=== PATIENT | male | born 1965 | race African-American/Black ===

== ENCOUNTER 2023-04-17 18:24 | Inpatient (IN) | payer BC, OTHER ==
[2023-04-17 18:52] VITALS: BMI 29.1
[2023-04-17 20:11] LABS: EOS % 0.2 % (0-4.5); HEMATOCRIT 37.6 % (35.4-49); HEMOGLOBIN 12.4 GM/dL (11.7-16.9); LYMPH % 21.4 % (8-40); MCHC 33.1 g/dl (32.0-35.9); MEAN CELL VOLUME 87.7 fl (80-96); MEAN PLT VOLUME 7.4 fl (7.5-11.1); MONO % 7.1 % (3.8-10.2); NEUT % 70.3 % (42.8-82.8); PLATELET COUNT 247 10^3/uL (134-434); RBC 4.28 M/mm3 (4.00-5.60); RDW 13.9 % (11.9-15.9); WHITE BLOOD COUNT 5.3 K/mm3 (4.0-10.0)
[2023-04-17] MEDS ORDERED: ACETAMINOPHEN 500 MG TABLET (FP) PO ONE (21:21)
[2023-04-17] MEDS ORDERED: ACETAMINOPHEN 500 MG TABLET (FP) ONE (21:36)
[2023-04-17] MEDS ORDERED: ACETAMINOPHEN 1000 MG/100 ML BAG IVPB ONE (21:39)
[2023-04-17] MEDS ORDERED: ACETAMINOPHEN INJECTION 100 ML IVPB ONE (21:41)
[2023-04-17 21:43] LABS: PH,URINE 8.5 (5.0-8.0); URINE APPEARANCE CLOUDY; URINE BILIRUBIN NEGATIVE (NEGATIVE); URINE COLOR YELLOW; URINE GLUCOSE (UA) NEGATIVE (NEGATIVE); URINE KETONE 1+ (NEGATIVE); URINE LEUK ESTERASE NEGATIVE (NEGATIVE); URINE NITRITE NEGATIVE (NEGATIVE); URINE PROTEIN NEGATIVE (NEGATIVE)
[2023-04-17 21:50] LABS: COCAINE, UR NEGATIVE (NEGATIVE); OPIATES, URI NEGATIVE (NEGATIVE); URINE BARBITURATES NEGATIVE (NEGATIVE)
[2023-04-17 21:52] LABS: METHADONE, UR NEGATIVE (NEGATIVE); URINE AMPHETAMINES NEGATIVE (NEGATIVE); URINE BENZODIAZEPINES NEGATIVE (NEGATIVE)
[2023-04-17 22:01] LABS: CHLORIDE 111 mmol/L (98-107); POTASSIUM 3.9 mmol/L (3.5-5.1); SODIUM 142 mmol/L (136-145)
[2023-04-17 22:02] LABS: ALBUMIN 3.4 g/dl (3.4-5.0); ANION GAP 7 mmol/L (4-13); BLOOD UREA NITROGEN 13.8 mg/dL (7-18); CALCIUM 8.9 mg/dL (8.5-10.1); CO2 25 mmol/L (21-32); GLUCOSE,RANDOM 91 mg/dL (74-106)
[2023-04-17 22:03] LABS: PHENCYCLIDINE,URINE POSITIVE (NEGATIVE)
[2023-04-17 22:05] LABS: SGPT/ALT 32 U/L (13-61)
[2023-04-17 22:07] LABS: BILIRUBIN,TOTAL 0.5 mg/dL (0.2-1); CREATININE 0.9 mg/dL (0.55-1.3); SGOT/AST 23 U/L (15-37); TOT PROT 7.1 g/dl (6.4-8.2)
[2023-04-17 22:09] LABS: ALK PHOS 64 U/L (45-117)
[2023-04-17] MEDS ORDERED: SODIUM CHLORIDE 0.9% 500 ML INFUS.BAG IV ONE (22:09)
[2023-04-17 22:10] LABS: N-TERMINAL BNP 172.8 pg/ml (5-125)
[2023-04-18] MEDS ORDERED: cloNIDine HCL 0.1 MG TABLET PO PRN (04:07)
[2023-04-18] MEDS ORDERED: methaDONE HCL 10 MG TABLET PO ONE (04:07)
[2023-04-18 04:09] LABS: COCAINE, UR NEGATIVE (NEGATIVE); METHADONE, UR NEGATIVE (NEGATIVE); OPIATES, URI NEGATIVE (NEGATIVE)
[2023-04-18 04:10] LABS: URINE AMPHETAMINES NEGATIVE (NEGATIVE)
[2023-04-18 04:15] LABS: PHENCYCLIDINE,URINE POSITIVE (NEGATIVE); URINE BARBITURATES NEGATIVE (NEGATIVE); URINE BENZODIAZEPINES NEGATIVE (NEGATIVE)
[2023-04-18] MEDS ORDERED: methaDONE HCL 10 MG TABLET ONE (04:19)
[2023-04-18 07:44] LABS: BASO % 0.8 % (0-2.0); EOS % 0.8 % (0-4.5); HEMATOCRIT 36.4 % (35.4-49); HEMOGLOBIN 12.1 GM/dL (11.7-16.9); LYMPH % 24.2 % (8-40); MCH 29.8 pg (25.7-33.7); MCHC 33.2 g/dl (32.0-35.9); MEAN CELL VOLUME 89.7 fl (80-96); MEAN PLT VOLUME 7.9 fl (7.5-11.1); MONO % 9.6 % (3.8-10.2); NEUT % 64.6 % (42.8-82.8); PLATELET COUNT 251 10^3/uL (134-434); RBC 4.05 M/mm3 (4.00-5.60); RDW 13.6 % (11.9-15.9); WHITE BLOOD COUNT 6.3 K/mm3 (4.0-10.0)
[2023-04-18] MEDS ORDERED: MAG HYDROX/AL HYDROX/SIMETH 30 ML UNIT-DOSE CUP ONE (07:44)
[2023-04-18 08:07] LABS: POTASSIUM 3.8 mmol/L (3.5-5.1)
[2023-04-18 08:08] LABS: ALBUMIN 3.1 g/dl (3.4-5.0); CALCIUM 8.4 mg/dL (8.5-10.1)
[2023-04-18 08:09] LABS: BLOOD UREA NITROGEN 11.6 mg/dL (7-18)
[2023-04-18 08:12] LABS: PHOSPHOROUS 2.4 mg/dL (2.5-4.9)
[2023-04-18 08:13] LABS: CREATININE 0.8 mg/dL (0.55-1.3)
[2023-04-18 08:14] LABS: BILIRUBIN,TOTAL 0.6 mg/dL (0.2-1); TOT PROT 6.8 g/dl (6.4-8.2)
[2023-04-18] MEDS: MAG HYDROX/AL HYDROX/SIMETH 30 ML UNIT-DOSE CUP PO SCH ×3 (08:20→23:17)
[2023-04-18] MEDS ORDERED: ENOXAPARIN NA (PORCINE) 80 MG/0.8 ML DISP.SYRIN SQ ONE (09:09)
[2023-04-18] MEDS: ENOXAPARIN NA (PORCINE) 80 MG/0.8 ML DISP.SYRIN SQ SCH ×2 (09:16→23:17)
[2023-04-18] MEDS ORDERED: ENOXAPARIN NA (PORCINE) 40 MG/0.4 ML DISP.SYRIN SQ SCH (10:00)
[2023-04-18] MEDS ORDERED: SODIUM CHLORIDE 0.9% 500 ML INFUS.BAG IV ONE (14:20)
[2023-04-18 14:30] LABS: HIV INTERPRETATION NEGATIVE (NEGATIVE)
[2023-04-18 14:37] LABS: SYPHILIS W/ RPR CONF NON-REACTIVE (NONREACTIVE)
[2023-04-18] MEDS ORDERED: cloNIDine HCL 0.1 MG TABLET ONE (18:37)
[2023-04-19] MEDS: MAG HYDROX/AL HYDROX/SIMETH 30 ML UNIT-DOSE CUP PO SCH ×3 (06:46→21:19)
[2023-04-19] MEDS: SODIUM CHLORIDE 1,000 ML IV SCH (12:01)
[2023-04-19] MEDS: ENOXAPARIN NA (PORCINE) 80 MG/0.8 ML DISP.SYRIN SQ SCH ×2 (12:14→21:19)
[2023-04-19 13:38] LABS: BASO % 1.3 % (0-2.0); EOS % 1.4 % (0-4.5); HEMOGLOBIN 14.3 GM/dL (11.7-16.9); LYMPH % 26.8 % (8-40); MCH 29.4 pg (25.7-33.7); MCHC 33.3 g/dl (32.0-35.9); MEAN CELL VOLUME 88.1 fl (80-96); MEAN PLT VOLUME 7.9 fl (7.5-11.1); MONO % 9.2 % (3.8-10.2); NEUT % 61.3 % (42.8-82.8); PLATELET COUNT 276 10^3/uL (134-434); RBC 4.88 M/mm3 (4.00-5.60); RDW 13.5 % (11.9-15.9); WHITE BLOOD COUNT 5.6 K/mm3 (4.0-10.0)
[2023-04-19 14:05] LABS: POTASSIUM 4.2 mmol/L (3.5-5.1)
[2023-04-19 14:11] LABS: ALBUMIN 3.4 g/dl (3.4-5.0); CALCIUM 8.9 mg/dL (8.5-10.1)
[2023-04-19 14:12] LABS: MAGNESIUM 2.4 mg/dL (1.8-2.4)
[2023-04-19 14:15] LABS: CREATININE 0.9 mg/dL (0.55-1.3); PHOSPHOROUS 3.2 mg/dL (2.5-4.9)
[2023-04-19 14:16] LABS: TOT PROT 7.3 g/dl (6.4-8.2)
[2023-04-19 14:17] LABS: BILIRUBIN,TOTAL 0.4 mg/dL (0.2-1)
[2023-04-20] MEDS: MAG HYDROX/AL HYDROX/SIMETH 30 ML UNIT-DOSE CUP PO SCH ×3 (05:12→22:33)
[2023-04-20 09:14] LABS: HEMOGLOBIN 13.2 GM/dL (11.7-16.9); MCH 29.6 pg (25.7-33.7); MCHC 33.9 g/dl (32.0-35.9); MEAN CELL VOLUME 87.4 fl (80-96); MEAN PLT VOLUME 7.7 fl (7.5-11.1); PLATELET COUNT 262 10^3/uL (134-434); RBC 4.46 M/mm3 (4.00-5.60); RDW 13.8 % (11.9-15.9); WHITE BLOOD COUNT 5.2 K/mm3 (4.0-10.0)
[2023-04-20 09:27] LABS: POTASSIUM 4.2 mmol/L (3.5-5.1)
[2023-04-20 09:33] LABS: CALCIUM 8.6 mg/dL (8.5-10.1)
[2023-04-20 09:34] LABS: BLOOD UREA NITROGEN 22.7 mg/dL (7-18); MAGNESIUM 2.2 mg/dL (1.8-2.4)
[2023-04-20 09:37] LABS: BILIRUBIN,TOTAL 0.4 mg/dL (0.2-1); PHOSPHOROUS 3.8 mg/dL (2.5-4.9); TOT PROT 6.6 g/dl (6.4-8.2)
[2023-04-20 09:38] LABS: URINE APPEARANCE CLEAR; URINE BILIRUBIN NEGATIVE (NEGATIVE); URINE COLOR YELLOW; URINE GLUCOSE (UA) NEGATIVE (NEGATIVE); URINE KETONE TRACE (NEGATIVE); URINE LEUK ESTERASE NEGATIVE (NEGATIVE); URINE NITRITE NEGATIVE (NEGATIVE); URINE PROTEIN NEGATIVE (NEGATIVE); URINE UROBILINOGEN 0.2 mg/dL (0.2-1.0)
[2023-04-20] MEDS ORDERED: methaDONE HCL 10 MG TABLET PO ONE (10:00)
[2023-04-20] MEDS ORDERED: methaDONE HCL 10 MG TABLET (FOR DETOX USE ONLY) PO ONE (10:00)
[2023-04-20] MEDS: ENOXAPARIN NA (PORCINE) 80 MG/0.8 ML DISP.SYRIN SQ SCH ×2 (10:11→22:32)
[2023-04-20] MEDS: SODIUM CHLORIDE 1,000 ML IV SCH (11:25)
[2023-04-20] MEDS ORDERED: POLYETHYLENE GLYCOL (HEALTHYLAX) 3350 17 GM PACKET PO ONE (21:00)
[2023-04-20] MEDS: INSULIN SLIDING SCALE (NOVOLOG) 1 VIAL SQ SCH (22:33)
[2023-04-20] MEDS: SENNOSIDES 8.8 MG/5 ML SYRUP PO SCH (22:33)
[2023-04-21] MEDS: MAG HYDROX/AL HYDROX/SIMETH 30 ML UNIT-DOSE CUP PO SCH ×3 (06:03→21:29)
[2023-04-21] MEDS: INSULIN SLIDING SCALE (NOVOLOG) 1 VIAL SQ SCH ×4 (07:00→22:00)
[2023-04-21 08:13] LABS: HEMOGLOBIN 12.8 GM/dL (11.7-16.9); MCH 29.6 pg (25.7-33.7); MCHC 32.8 g/dl (32.0-35.9); MEAN CELL VOLUME 90.1 fl (80-96); PLATELET COUNT 256 10^3/uL (134-434); RBC 4.33 M/mm3 (4.00-5.60); RDW 13.7 % (11.9-15.9); WHITE BLOOD COUNT 4.8 K/mm3 (4.0-10.0)
[2023-04-21 08:36] LABS: POTASSIUM 4.5 mmol/L (3.5-5.1)
[2023-04-21 08:42] LABS: BLOOD UREA NITROGEN 18.8 mg/dL (7-18); CALCIUM 8.5 mg/dL (8.5-10.1)
[2023-04-21 08:43] LABS: MAGNESIUM 2.2 mg/dL (1.8-2.4)
[2023-04-21 08:45] LABS: CREATININE 0.9 mg/dL (0.55-1.3); PHOSPHOROUS 4.6 mg/dL (2.5-4.9)
[2023-04-21 08:47] LABS: BILIRUBIN,TOTAL 0.3 mg/dL (0.2-1); TOT PROT 6.6 g/dl (6.4-8.2)
[2023-04-21] MEDS: ENOXAPARIN NA (PORCINE) 80 MG/0.8 ML DISP.SYRIN SQ SCH ×2 (09:19→21:29)
[2023-04-21] MEDS: POLYETHYLENE GLYCOL (HEALTHYLAX) 3350 17 GM PACKET PO SCH (09:19)
[2023-04-21] MEDS: SODIUM CHLORIDE 1,000 ML IV SCH (09:23)
[2023-04-21] MEDS: SENNOSIDES 8.8 MG/5 ML SYRUP PO SCH (21:29)
[2023-04-21 23:13] VITALS: RESP 18
[2023-04-21] MEDS ORDERED: ACETAMINOPHEN 325 MG TABLET (FP) PO PRN (23:34)
[2023-04-22] MEDS: MAG HYDROX/AL HYDROX/SIMETH 30 ML UNIT-DOSE CUP PO SCH ×3 (05:19→21:28)
[2023-04-22] MEDS: INSULIN SLIDING SCALE (NOVOLOG) 1 VIAL SQ SCH ×4 (06:13→21:28)
[2023-04-22 08:09] LABS: BASO % 1.3 % (0-2.0); EOS % 3.4 % (0-4.5); HEMATOCRIT 38.5 % (35.4-49); HEMOGLOBIN 12.8 GM/dL (11.7-16.9); LYMPH % 52.2 % (8-40); MCH 29.2 pg (25.7-33.7); MCHC 33.1 g/dl (32.0-35.9); MEAN CELL VOLUME 88.3 fl (80-96); MEAN PLT VOLUME 8.1 fl (7.5-11.1); NEUT % 31.1 % (42.8-82.8); PLATELET COUNT 232 10^3/uL (134-434); RBC 4.36 M/mm3 (4.00-5.60); RDW 13.9 % (11.9-15.9); WHITE BLOOD COUNT 3.9 K/mm3 (4.0-10.0)
[2023-04-22 08:17] LABS: INR 1.08 (0.83-1.09); PROTHROMBIN TIME (PATIENT) 12.5 SEC (9.7-13.0)
[2023-04-22 08:18] LABS: ACTIVATED PTT 35.3 SECONDS (25.2-36.5)
[2023-04-22 08:25] LABS: POTASSIUM 4.5 mmol/L (3.5-5.1)
[2023-04-22 08:37] LABS: PHOSPHOROUS 3.7 mg/dL (2.5-4.9)
[2023-04-22 08:38] LABS: ALBUMIN 3.1 g/dl (3.4-5.0); BILIRUBIN,TOTAL 0.4 mg/dL (0.2-1); BLOOD UREA NITROGEN 15.1 mg/dL (7-18); CALCIUM 8.6 mg/dL (8.5-10.1); MAGNESIUM 2.4 mg/dL (1.8-2.4); TOT PROT 6.5 g/dl (6.4-8.2)
[2023-04-22] MEDS ORDERED: methaDONE HCL 10 MG TABLET PO ONE (10:00)
[2023-04-22] MEDS: SODIUM CHLORIDE 1,000 ML IV SCH (10:02)
[2023-04-22] MEDS: ENOXAPARIN NA (PORCINE) 80 MG/0.8 ML DISP.SYRIN SQ SCH ×2 (10:05→21:28)
[2023-04-22] MEDS: POLYETHYLENE GLYCOL (HEALTHYLAX) 3350 17 GM PACKET PO SCH (10:05)
[2023-04-22] MEDS ORDERED: ARTIFICIAL TEARS (POLYVINYL ALCOHOL) OPTH DROPS OU PRN (18:38)
[2023-04-22] MEDS: SENNOSIDES 8.8 MG/5 ML SYRUP PO SCH (21:32)
[2023-04-23] MEDS: SODIUM CHLORIDE 1,000 ML IV SCH (05:47)
[2023-04-23] MEDS: MAG HYDROX/AL HYDROX/SIMETH 30 ML UNIT-DOSE CUP PO SCH ×2 (05:48→14:34)
[2023-04-23] MEDS: INSULIN SLIDING SCALE (NOVOLOG) 1 VIAL SQ SCH (06:19)
[2023-04-23] MEDS: ENOXAPARIN NA (PORCINE) 80 MG/0.8 ML DISP.SYRIN SQ SCH (09:12)
[2023-04-23] MEDS: POLYETHYLENE GLYCOL (HEALTHYLAX) 3350 17 GM PACKET PO SCH (09:12)
[2023-04-23 18:06] VITALS: BP 119/57; PULSE 69; TEMP 97.5
[2023-04-23] MEDS ORDERED: APIXABAN 5 MG TABLET PO SCH (22:00)
== END 2023-04-23 19:12 | disposition home or self-care (01) | DRG 134 ==
LOC: JER 18:24 → JERBED 04-18 01:18 → OBSVTOIN 04-18 01:18 → J6S 04-18 19:24 → J4S 04-19 09:39 → J4W 04-19 09:41
PROVIDERS: ADMIT Internal Medicine; ATTEND Internal Medicine
DX: I26.99 Other pulmonary embolism without acute cor pulmonale (principal); D68.59 Other primary thrombophilia; F11.20 Opioid dependence, uncomplicated; R20.0 Anesthesia of skin; I82.411 Acute embolism and thrombosis of right femoral vein; R07.89 Other chest pain; F17.210 Nicotine dependence, cigarettes, uncomplicated; E86.0 Dehydration; R73.9 Hyperglycemia, unspecified; G51.0 Bell's palsy; R47.1 Dysarthria and anarthria
CPT/HCPCS: 0241U-QW; 36415; 70450-TC; 70496-TC; 70498-TC; 70551-TC; 71045-TC-FY; 71275-TC; 80053; 80061; 80307; 81003; 82607; 82652; 82962; 83036; 83735; 83880; 84100; 84439; 84443; 84481; 84484; 85025; 85027; 85379; 85610; 85730; 86140; 86780; 87086; 87389; 93005; 93010; 93306-TC; 93970-TC; 97116-GP; 97162-GP; 99285-25; Q9967